=== PATIENT | female | born 1945 | race Caucasian/White ===

== ENCOUNTER 2017-03-28 07:29 | Outpatient (CLI) | payer MEDICARE, OTHER ==
[2017-03-28 08:01] LABS: BASOPHILS # (AUTO) 0.1 10^3/uL (0.0-0.1); BASOPHILS % (AUTO) 1.2 %; EOSINOPHILS # (AUTO) 0.2 10^3/uL (0.0-0.7); EOSINOPHILS % (AUTO) 2.1 %; HCT - HEMATOCRIT 39.2 % (37.0-47.0); HGB - HEMOGLOBIN 13.4 g/dL (12.0-16.0); LYMPHOCYTES # (AUTO) 2.2 10^3/uL (1.5-3.5); LYMPHOCYTES % (AUTO) 27.4 %; MEAN CORPUSCULAR HEMOGLOBIN 30.1 pg (27.0-31.0); MEAN CORPUSCULAR HGB CONC 34.3 g/dL (32.0-36.0); MEAN CORPUSCULAR VOLUME 87.8 fL (81.0-99.0); MEAN PLATELET VOLUME 7.7 fL (7.9-10.8); MONOCYTES # (AUTO) 0.7 10^3/uL (0.0-1.0); MONOCYTES % (AUTO) 8.8 %; NEUTROPHILS # (AUTO) 4.8 10^3/uL (1.5-6.6); NEUTROPHILS % (AUTO) 60.5 %; RED BLOOD COUNT 4.46 10^6/uL (4.20-5.40); RED CELL DISTRIBUTION WIDTH 13.4 % (12.0-15.0)
[2017-03-28 08:25] LABS: ALBUMIN/GLOBULIN RATIO 1.1 (1.0-2.2); BILIRUBIN,TOTAL 0.7 mg/dL (0.2-1.0); BUN - BLOOD UREA NITROGEN 16 mg/dL (6-20); CALCIUM 9.3 mg/dL (8.5-10.3); CARBON DIOXIDE - CO2 27 mmol/L (21-32); CHLORIDE 104 mmol/L (101-111); CHOL/HDL RATIO 2.8 (<4.4); CHOLESTEROL 165 mg/dL; CREATININE 0.6 mg/dL (0.4-1.0); GFR - MDRD 98 (>89); GLUCOSE 107 mg/dL (70-100); HDL CHOLESTEROL 60 mg/dL; LDL/HDL RATIO 1.5 (<4.4); POTASSIUM 4.1 mmol/L (3.5-5.0); SODIUM 139 mmol/L (135-145); TOTAL PROTEIN 7.4 g/dL (6.7-8.2); TRIGLYCERIDES 84 mg/dL; VLDL CHOLESTEROL 17 mg/dL
[2017-03-28 08:36] LABS: HEMOGLOBIN A1C 0.61 g/dL
[2017-03-28 09:26] LABS: THYROID STIMULATING HORMONE 1.73 uIU/mL (0.34-5.60)
[2017-03-29 04:53] LABS: TEST RESULT REPORT (())
[2017-04-02 20:22] LABS: TEST RESULT REPORT (())
== END 2017-03-28 07:30 | disposition home or self-care (01) ==
LOC: LAB 07:29
PROVIDERS: ATTEND Obstetrics & Gynecology Obesity Medicine
DX: E78.5 Hyperlipidemia, unspecified (principal); E11.9 Type 2 diabetes mellitus without complications; Z83.49 Family history of other endocrine, nutritional and metabolic diseases; Z82.49 Family history of ischemic heart disease and other diseases of the circulatory system; Z83.3 Family history of diabetes mellitus; E55.9 Vitamin D deficiency, unspecified
CPT/HCPCS: 80053; 80061; 81599; 82306; 82607; 83036; 83525; 83735; 84443; 85025; 86140

== ENCOUNTER 2017-05-11 11:56 | Outpatient (CLI) | payer MEDICARE, OTHER ==
--- NOTE | 2017-05-11 20:42 | XRAY Report ---
EXAM: CHEST RADIOGRAPHY EXAM DATE: 05/11/2017 01:23 PM. CLINICAL HISTORY: DYSPNEA. COMPARISON: 07/07/2016. TECHNIQUE: 2 views. FINDINGS: Lungs/Pleura: No focal infiltrate, effusion, or pneumothorax. Mild interstitial opacities peripherall y, which may reflect fibrosis. Mediastinum: Heart and mediastinal contours are unremarkable. Other: None. IMPRESSION: Possible mild pulmonary fibrosis. No focal infiltrate. [facility] Referring Provider Line: [phone] SITE ID: [id number]
== END 2017-05-11 11:57 | disposition home or self-care (01) ==
LOC: DI 11:56
PROVIDERS: ATTEND Internal Medicine
DX: R06.00 Dyspnea, unspecified (principal)
CPT/HCPCS: 71020

== ENCOUNTER 2018-03-11 09:35 | Outpatient (CLI) | payer MEDICARE, OTHER ==
[2018-03-11 10:11] LABS: CALCIUM 9.6 mg/dL (8.5-10.3); CREATININE 0.7 mg/dL (0.4-1.0)
[2018-03-11 10:23] LABS: HB2 TOTAL 14.1 g/dL; HEMOGLOBIN A1C 0.63 g/dL; HEMOGLOBIN A1C % 6.2 % (4.6-6.2)
== END 2018-03-11 09:36 | disposition home or self-care (01) ==
LOC: LAB 09:35
PROVIDERS: ATTEND Internal Medicine
DX: E11.9 Type 2 diabetes mellitus without complications (principal); Z79.899 Other long term (current) drug therapy
CPT/HCPCS: 36415; 80048; 82607; 83036

== ENCOUNTER 2018-03-18 18:50 | Emergency (ER) | payer MEDICARE, OTHER ==
[2018-03-18 19:45] LABS: BASOPHILS # (AUTO) 0.1 10^3/uL (0.0-0.1); BASOPHILS % (AUTO) 0.9 %; EOSINOPHILS # (AUTO) 0.2 10^3/uL (0.0-0.7); EOSINOPHILS % (AUTO) 1.8 %; LYMPHOCYTES # (AUTO) 3.2 10^3/uL (1.5-3.5); LYMPHOCYTES % (AUTO) 30.4 %; MEAN CORPUSCULAR HEMOGLOBIN 29.1 pg (27.0-31.0); MEAN CORPUSCULAR HGB CONC 33.1 g/dL (32.0-36.0); MEAN PLATELET VOLUME 7.1 fL (7.9-10.8); MONOCYTES # (AUTO) 0.9 10^3/uL (0.0-1.0); MONOCYTES % (AUTO) 8.4 %; NEUTROPHILS # (AUTO) 6.3 10^3/uL (1.5-6.6); NEUTROPHILS % (AUTO) 58.5 %; PLT - PLATELET COUNT 307 10^3/uL (130-450); RED BLOOD COUNT 4.47 10^6/uL (4.20-5.40); RED CELL DISTRIBUTION WIDTH 13.9 % (12.0-15.0); WHITE BLOOD COUNT 10.7 x10^3/uL (4.8-10.8)
[2018-03-18 20:01] LABS: ALBUMIN 4.3 g/dL (3.2-5.5); ALBUMIN/GLOBULIN RATIO 1.3 (1.0-2.2); BILIRUBIN,TOTAL 0.6 mg/dL (0.2-1.0); CALCIUM 9.5 mg/dL (8.5-10.3); CREATININE 0.8 mg/dL (0.4-1.0); TOTAL PROTEIN 7.7 g/dL (6.7-8.2)
[2018-03-18] MEDS ORDERED: CYCLOBENZAPRINE 10 MG TABLET PO STA (20:05)
[2018-03-18] MEDS ORDERED: LIDOCAINE PATCH 5% TOP STA (20:05)
[2018-03-18] MEDS ORDERED: KETOROLAC 60 MG/2 ML VIAL IVP STA (20:05)
--- NOTE | 2018-03-18 20:14 | ED Physician Documentation ---
PD HPI NECK PAIN - Stated complaint Stated Complaint: RT NEXT AND JAW PX - Chief complaint Chief Complaint: Cardiac - History obtained from History obtained from: Patient, Family - History of Present Illness Timing - onset: Yesterday Timing - details: Gradual onset, Still present Location: Upper, Lower, Right Quality: Pain, Aching Associated symptoms: No: Fever, Weakness, Numbness Worsened by: Movement, Lifting, Twisting Similar symptoms before: No diagnosis Recently seen: Not recently seen - Additional information Additional information: patient is a 73 year old female with a history of arthritis and possible tmj who is presenting to the emergency department for neck and jaw pain. patient states that the pain started yesterday and has become progressively worse. patient states that she had recently been driving a lot which is new for her, she also reports that she had a history jaw pain but has never been diagnosed with jaw pain. Review of Systems Constitutional: denies: Fever, Chills Eyes: reports: Decreased vision. denies: Photophobia Ears: reports: Ear pain Throat: denies: Sore throat Cardiac: denies: Chest pain / pressure, Palpitations GI: denies: Nausea, Vomiting : reports: Reviewed and negative Skin: denies: Rash, Lesions Musculoskeletal: reports: Neck pain, Extremity pain Neurologic: denies: Generalized weakness, Focal weakness, Numbness Immunocompromised: denies: Immunocompromised PD PAST MEDICAL HISTORY - Past Medical History Cardiovascular: Hypertension, High cholesterol Respiratory: None Endocrine/Autoimmune: None, Type 2 diabetes, HyPOthyroidism GI: None : None HEENT: None Psych: None Musculoskeletal: Osteoarthritis Derm: None - 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 - Present Medications Home Medications: Ambulatory Orders Medication Instructions Recorded Confirmed Atorvastatin Calcium 10 mg PO QPM 06/11/16 07/07/16 Levothyroxine Sodium 75 mcg PO DAILY 06/11/16 07/07/16 Lisinopril 40 mg PO BID 06/11/16 07/07/16 Metformin HCl [Glucophage] 850 mg PO BIDWM 06/11/16 07/07/16 Aspirin Chewable [[place] 81 mg PO DAILY #30 tablet 07/08/16 Aspirin] amLODIPine [Norvasc] 5 mg PO DAILY #30 tablet 07/08/16 Cyclobenzaprine [Flexeril] 10 mg PO TID PRN #10 tablet 03/18/18 Lidocaine Patch 5% [Lidoderm Patch] 1 each TOP DAILY #14 patch 03/18/18 Omeprazole [PriLOSEC] 10 mg PO 03/18/18 - Allergies Allergies/Adverse Reactions: Allergies Allergy/AdvReac Type Severity Reaction Status Date / Time No Known Drug Allergies Allergy Verified 03/18/18 19:02 - Social History Does the pt smoke?: No Smoking Status: Never smoker Does the pt drink ETOH?: No - Immunizations Immunizations are current?: Yes PD ED PE NORMAL - Vitals Vital signs reviewed: Yes - General General: Alert and oriented X 3, No acute distress - HEENT HEENT: Atraumatic, PERRL - Neck Neck: No adenopathy - Cardiac Cardiac: RRR, No murmur - Respiratory Respiratory: No respiratory distress - Abdomen Abdomen: Soft, Non tender, Non distended - Derm Derm: Normal color, No rash - Extremities Extremities: No deformity - Neuro Neuro: Alert and oriented X 3, 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 No: Stiff neck Results - Vitals Vitals: Vital Signs - 24 hr 03/18/18 03/18/18 03/18/18 19:00 20:11 20:38 Temperature 36.4 C L Heart Rate 84 76 72 Respiratory 18 17 17 Rate Blood Pressure 152/91 H 120/54 L 124/76 O2 Saturation 98 98 99 Oxygen O2 Source Room air - EKG (time done) 1908 Rate: Rate (enter#) (78) Rhythm: NSR [place]: Normal Intervals: Normal NH Compare to prior EKG: Unchanged from prior EKG Computer interpretation: Disagree with computer - Labs Labs: Laboratory Tests 03/18/18 03/18/18 03/18/18 19:37 19:37 19:37 WBC 10.7 RBC 4.47 Hgb 13.0 Hct 39.4 MCV 88.0 MCH 29.1 MCHC 33.1 RDW 13.9 Plt Count 307 MPV 7.1 L Neut # 6.3 Lymph # 3.2 Dane # 0.9 Eos # 0.2 Baso # 0.1 Absolute Nucleated RBC 0.00 Nucleated RBC % 0.0 Sodium 131 L Potassium 3.9 Chloride 96 L Carbon Dioxide 26 Anion Gap 9.0 BUN 21 H Creatinine 0.8 Estimated GFR (MDRD) 70 L Glucose 102 H Calcium 9.5 Total Bilirubin 0.6 AST 27 ALT 27 Alkaline Phosphatase 68 Troponin I < 0.04 Total Protein 7.7 Albumin 4.3 Globulin 3.4 Albumin/Globulin Ratio 1.3 Lipase 29 PD MEDICAL DECISION MAKING - ED course Complexity details: reviewed old records, reviewed results, re-evaluated patient , considered differential, d/w patient, d/w family ED course: patient was seen and examined at bedside. patient was well appearing and in no acute distress. ekg was performed an was within normal limits. patient's diagnostics were within normal limits. patient's pain was likely musculoskeletal in nature. patient was treated with toradol, flexeril and a lidoderm patch. Patient required no further work up and was stable for discharge with outpatient follow up. Departure - Departure Disposition: Home, Self Care Clinical Impression: Neck muscle strain Condition: Good Instructions: ED Spasm Neck No Injury Follow-Up: Sheila Egan MD [Primary Care Provider] - Within 3 Days Prescriptions: Cyclobenzaprine [Flexeril] 10 mg PO TID PRN #10 tablet PRN Reason: Spasms Lidocaine Patch 5% [Lidoderm Patch] 1 each TOP DAILY #14 patch Comments: Your diagnostics today were within normal limits. there were no acute abnormalities. Your symptoms are less likely cardiac in nature and more likely musculoskeletal. That being said it is important that you follow up with your doctor in the next three days. You are at an appropriate time for a stress test and repeat echo. You may return to the emergency department at any time for new, worsening or uncontrollable symptoms.
[2018-03-18 20:39] VITALS: BP 124/76
== END 2018-03-18 20:45 | disposition home or self-care (01) ==
LOC: ED 18:50
DX: S16.1XXA Strain of muscle, fascia and tendon at neck level, initial encounter (principal); X58.XXXA Exposure to other specified factors, initial encounter; I10 Essential (primary) hypertension; E78.00 Pure hypercholesterolemia, unspecified; E11.9 Type 2 diabetes mellitus without complications; Z79.84 Long term (current) use of oral hypoglycemic drugs; E03.9 Hypothyroidism, unspecified; M19.90 Unspecified osteoarthritis, unspecified site; Z79.82 Long term (current) use of aspirin
CPT/HCPCS: 36415; 80053; 83690; 84484; 85025; 93005; 96374; 99283; 99284; A9270

== ENCOUNTER 2018-11-10 10:22 | Outpatient (CLI) | payer MEDICARE, OTHER ==
[2018-11-10] MEDS ORDERED: ALPRAZolam 0.25 MG TABLET PO SCH (12:00)
[2018-11-10] MEDS ORDERED: ALPRAZolam 0.25 MG TABLET PO ONE (12:12)
[2018-11-10] MEDS ORDERED: REGADENOSON 0.4 MG/5 ML SYRINGE IVP ONE (12:44)
--- NOTE | 2018-11-10 13:40 | CARDIAC PROCEDURE NOTE ---
DATE OF SERVICE: 11/10/2018 Physician: Sheila Egan MD PROCEDURE: Exercise Cardiolyte test. PROTOCOL: Renny. TIME: 5 minutes 3 seconds, NAKIA was -10, METs 7.05. BLOOD PRESSURE RESPONSE: Baseline 146/82 to maximum 190/80 during recovery. HEART RATE RESPONSE: Baseline 75 to maximum 130, which was 88% of the maximum predicted. SYMPTOMS: No chest pain. No dizziness. No jaw pain. REASON FOR STOPPING TEST: The patient felt winded. EXAM CHANGES: None. ARRHYTHMIAS: None detected. ST-SEGMENT RESPONSE: No significant ST-segment elevations or depressions. IMPRESSION: No symptoms, no significant electrocardiogram changes. CONCLUSION: Await Cardiolite portion of test. TD: 11/10/2018 13:25 MTDBang
--- NOTE | 2018-11-10 15:33 | Nuclear Medicine Report ---
Reason: CHEST PAIN, PRUETT Procedure Date: 11/10/2018 Accession Number: [id number] / [id number] Procedure: NM - Myocardial Perfusion STR/RST CPT Code: FULL RESULT: EXAM: SINGLE-ISOTOPE PHARMACOLOGICAL STRESS TEST WITH REGADENOSON. SINGLE-ISOTOPE AND ONE-DAY REST/STRESS MYOCARDIAL PERFUSION SCANS WITH TOMOGRAPHIC IMAGING, QUANTITATIVE ANALYSIS, WALL MOTION ANALYSIS AND CALCULATION OF EJECTION FRACTION. EXAM DATE: 11/10/2018 02:30 PM. CLINICAL HISTORY: Chest pain, dyspnea on exertion. COMPARISON: None. TECHNIQUE: After the intravenous administration of 10.8 mCi of Tc-99m sestamibi, a rest myocardial perfusion scan was done with tomography. Motion correction was applied when appropriate. After an appropriate delay, pharmacological stress was performed with the infusion of 0.4 mg regadenoson per protocol. According to protocol, 43 mCi of Tc-99m sestamibi was injected for stress myocardial perfusion scan. Motion correction was applied when appropriate. Gated tomographic images were obtained for wall motion analysis and computation of left ventricular ejection fraction. FINDINGS: No fixed or reversible perfusion defects. Wall motion analysis demonstrates normal wall motion. Left ventricular chamber size is normal. Ejection fraction is 89%. IMPRESSION: 1. No scintigraphic findings to indicate myocardial ischemia. Negative for infarct. 2. Left ventricular ejection fraction of 89%. 3. Normal segmental and global wall motion. 4. Normal left ventricular cavity size, no change with stress. [facility]
== END 2018-11-10 10:23 | disposition home or self-care (01) ==
LOC: DI 10:22
PROVIDERS: ATTEND Internal Medicine
DX: R07.9 Chest pain, unspecified (principal); R06.00 Dyspnea, unspecified
CPT/HCPCS: 78452; 93017; A9270; A9500

== ENCOUNTER 2019-01-25 08:26 | Outpatient (CLI) | payer MEDICARE, OTHER ==
[2019-01-26 13:39] LABS: BUN - BLOOD UREA NITROGEN 19 mg/dL (6-20); CALCIUM 9.3 mg/dL (8.5-10.3); CARBON DIOXIDE - CO2 28 mmol/L (21-32); CHLORIDE 101 mmol/L (101-111); CREATININE 0.6 mg/dL (0.4-1.0); GFR - MDRD 98 (>89); GLUCOSE 124 mg/dL (70-100); SODIUM 137 mmol/L (135-145)
[2019-01-26 13:40] LABS: ALBUMIN 3.9 g/dL (3.2-5.5); ALBUMIN/GLOBULIN RATIO 1.1 (1.0-2.2); ALKALINE PHOSPHATASE 66 IU/L (42-121); ALT ALANINE AMINOTRANSFERASE 22 IU/L (10-60); AST ASPARTATE AMINOTRANSFERASE 25 IU/L (10-42); BILIRUBIN,TOTAL 0.6 mg/dL (0.2-1.0); CHOL/HDL RATIO 2.8 (<4.4); CHOLESTEROL 188 mg/dL; HDL CHOLESTEROL 67 mg/dL; LDL CHOLESTEROL,CALCULATED 101 mg/dL; LDL/HDL RATIO 1.5 (<4.4); TOTAL PROTEIN 7.3 g/dL (6.7-8.2); VLDL CHOLESTEROL 20 mg/dL
== END 2019-01-25 08:27 | disposition home or self-care (01) ==
LOC: LAB 08:26
PROVIDERS: ATTEND Nurse Practitioner Adult Health
DX: E66.9 Obesity, unspecified (principal)
CPT/HCPCS: 36415; 80053; 80061; 83036; 83721; 84439; 84443

== ENCOUNTER 2019-06-25 06:09 | Day surgery (SDC) | payer MEDICARE, OTHER ==
[2019-06-25] MEDS ORDERED: KETOROLAC 0.45% OPHTH DROPS ONE (06:28)
[2019-06-25] MEDS ORDERED: PHENYLEPHRINE 2.5% OPHTH 2 ML DROPS ONE (06:28)
[2019-06-25] MEDS ORDERED: CYCLOPENTOLATE 1% OPHTH DROPS 2 ML ONE (06:29)
[2019-06-25] MEDS ORDERED: PROPARACAINE 0.5% OPHTH DROPS 15 ML ONE (06:29)
[2019-06-25] MEDS ORDERED: LACTATED RINGERS 500 ML IV ONE (06:31)
[2019-06-25] MEDS ORDERED: PROPARACAINE 0.5% OPHTH DROPS 15 ML RIGHTEYE ONE ×2 (06:40→07:36)
[2019-06-25] MEDS ORDERED: KETOROLAC 0.45% OPHTH DROPS RIGHTEYE ONE (06:40)
[2019-06-25] MEDS ORDERED: PHENYLEPHRINE 2.5% OPHTH 2 ML DROPS RIGHTEYE ONE (06:40)
[2019-06-25] MEDS ORDERED: CYCLOPENTOLATE 1% OPHTH DROPS 2 ML RIGHTEYE ONE (06:40)
[2019-06-25] MEDS ORDERED: EPINEPHrine 1 MG/ML AMP ONE (07:19)
[2019-06-25] MEDS ORDERED: TRIAMCIN/MOXIFLOX OPHTHALMIC 0.6 ML VIAL IO ONE ×2 (07:19→07:37)
--- NOTE | 2019-06-25 07:19 | ANESTHESIA ---
Pre-Anesthesia VS, & Labs - Diagnosis senile cataract - Procedure right cataract extraction with IOL Vital Signs: Temp Pulse Resp BP Pulse Ox 36.3 C L 73 18 131/75 H 4 L 06/25/19 06:32 06/25/19 06:32 06/25/19 06:32 06/25/19 06:32 06/25/19 06:32 Height 5 ft 7 in Weight (kg) 93 kg Body Mass Index 37.7 - NPO >8 hours - Is Patient ?: No - Lab Results Current Lab Results: Laboratory Tests 06/25/19 06:46: POC Whole Bld Glucose 98 Home Medications and Allergies Home Medications: Ambulatory Orders Meloxicam 7.5 mg PO DAILY 06/24/19 Atorvastatin Calcium 10 mg PO QPM 06/11/16 Levothyroxine Sodium 75 mcg PO DAILY 06/11/16 Lisinopril 40 mg PO BID 06/11/16 Metformin HCl [Glucophage] 850 mg PO BIDWM 06/11/16 Omeprazole [PriLOSEC] 10 mg PO DAILY 03/18/18 Meloxicam 7.5 mg PO DAILY 06/24/19 Allergies/Adverse Reactions: Allergies Allergy/AdvReac Type Severity Reaction Status Date / Time No Known Drug Allergies Allergy Verified 03/18/18 19:02 Anes History & Medical History - Anesthetic History Anesthesia Complications: reports: No previous complications - Medical History Cardiovascular: reports: Hypertension, High cholesterol Pulmonary: reports: None Gastrointestinal: reports: None Urinary: reports: None Musculoskeletal: reports: Osteoarthritis Endocrine/Autoimmune: reports: Type 2 diabetes, HyPOthyroidism Blood Disorders: reports: None Skin: reports: None Smoking Status: Never smoker - Surgical History Eyes Ears Nose Throat (EENT): Tonsil/Adenoidectomy Gynecologic: Oophrectomy Exam General: Alert Dental: WNL Mouth Opening: Greater than 4 Fingerbreadths Neck Mobility: Normal Mallampati classification: II Respiratory: Lungs clear Cardiovascular: Regular rate, Normal S1, Normal S2 Plan Anesthesia Type: MAC Consent for Procedure(s) Verified and Reviewed: Yes Code Status: Attempt Resuscitation ASA classification: 2-Mild systemic disease Is this case an emergency?: No
[2019-06-25] MEDS ORDERED: TIMOLOL 0.5% OPHTH DROPS ONE (07:20)
[2019-06-25] MEDS ORDERED: BRIMONIDINE 0.2% OPHTH DROPS 5 ML ONE (07:20)
[2019-06-25] MEDS ORDERED: VANCOMYCIN OPHTHALMI 8MG/0.8ML 8 MG/0.8 ML SYRINGE IO ONE ×2 (07:20→07:37)
[2019-06-25] MEDS ORDERED: BSS/LIDOCAINE/EPINEPHRINE 1 ML SYRINGE ONE (07:20)
[2019-06-25] MEDS ORDERED: MIDAZOLAM 2 MG/2 ML VIAL IVP ONE (07:30)
[2019-06-25] MEDS ORDERED: EPINEPHrine 1 MG/ML AMP IVP ONE (07:35)
[2019-06-25] MEDS ORDERED: BRIMONIDINE 0.2% OPHTH DROPS 5 ML OPTH ONE (07:35)
[2019-06-25] MEDS ORDERED: BSS/LIDOCAINE/EPINEPHRINE 1 ML SYRINGE IO ONE (07:36)
[2019-06-25] MEDS ORDERED: TIMOLOL 0.5% OPHTH DROPS OPTH ONE (07:36)
[2019-06-25] MEDS ORDERED: CHONDR SULF/HYALURONATE SYRINGE IO ONE (07:36)
[2019-06-25 08:04] VITALS: BP 98/62
--- NOTE | 2019-06-25 08:24 | OPERATIVE REPORT ---
DATE OF SERVICE: 06/25/2019 Physician: Abner Hernandez MD PREOPERATIVE DIAGNOSIS: Visually significant cataract, right eye. This was her first cataract surgery. POSTOPERATIVE DIAGNOSIS: Visually significant cataract, right eye. DESCRIPTION OF PROCEDURE: Phacoemulsification with posterior chamber intraocular lens implant, right eye. SURGEON: Abner Hernandez MD. ANESTHESIA: Monitored anesthesia care. COMPLICATIONS: None. OPERATIVE INDICATIONS: This is a 74-year-old woman with progressive vision loss in the right eye due to 3-4+ nuclear sclerotic cataract. Best corrected visual acuity was 20/25 with glare to hand motion in the right eye. Indications for surgery were overall decrease in vision, difficulty reading, difficulty seeing street signs, and difficulty driving at night because of headlights from other vehicles. She was consented at length concerning risks and benefits of cataract surgery, after which she expressed a desire to proceed with surgery. OPERATIVE PROCEDURE: The patient was taken into OR #3 and placed under monitored anesthesia care. Surgical timeout was conducted confirming correct patient, correct procedure, and correct surgical site. She was given topical anesthesia, and then prepped and draped in the usual sterile fashion. The eye was entered at the 12 and 9-o'clock positions. Intracameral Shugarcaine was injected into the anterior chamber, followed by Viscoat. A continuous-tear curvilinear capsulorrhexis flap was created and removed from the anterior chamber. The nucleus was hydrodissected and phacoemulsified. The cortex was evacuated using automated infusion and aspiration. Provisc was injected in the capsular bag, and a 21.5 diopter intraocular lens inserted in the bag. Approximately 0.8 mL of a mixture of triamcinolone, moxifloxacin and vancomycin was injected subconjunctivally in the superior quadrant for infection and inflammation prophylaxis. I and A was used to evacuate the viscoelastic materials. The eye was inflated to physiologic pressure using a balanced salt solution and found to be watertight. The patient was taken from the operating room in good condition and given postoperative instructions. TD: 06/25/2019 08:01 VICTOR M
== END 2019-06-25 06:10 | disposition home or self-care (01) ==
LOC: SDS 06:09
PROVIDERS: ATTEND Ophthalmology
PROC: 08RJ3JZ Replacement of Right Lens with Synthetic Substitute, Percutaneous Approach (ICD-10-PCS; principal; 2019-06-25 07:30)
DX: H25.11 Age-related nuclear cataract, right eye (principal); E11.36 Type 2 diabetes mellitus with diabetic cataract; I10 Essential (primary) hypertension; E78.00 Pure hypercholesterolemia, unspecified; E03.9 Hypothyroidism, unspecified; Z79.84 Long term (current) use of oral hypoglycemic drugs; Z87.891 Personal history of nicotine dependence
CPT/HCPCS: 66984; A9270; J3490; V2632

== ENCOUNTER 2019-07-23 09:08 | Day surgery (SDC) | payer MEDICARE, OTHER ==
[~2019-07-23 09:08] MED LIST: BRIMONIDINE 0.2% OPHTH DROPS 5 ML ONE; BSS/LIDOCAINE/EPINEPHRINE 1 ML SYRINGE ONE; CYCLOPENTOLATE 1% OPHTH DROPS 2 ML ONE; EPINEPHrine 1 MG/ML AMP ONE; KETOROLAC 0.45% OPHTH DROPS ONE; PHENYLEPHRINE 2.5% OPHTH 2 ML DROPS ONE; PROPARACAINE 0.5% OPHTH DROPS 15 ML ONE; TIMOLOL 0.5% OPHTH DROPS ONE; TRIAMCIN/MOXIFLOX OPHTHALMIC 0.6 ML VIAL IO ONE; VANCOMYCIN OPHTHALMI 8MG/0.8ML 8 MG/0.8 ML SYRINGE IO ONE
[2019-07-23] MEDS ORDERED: MIDAZOLAM 2 MG/2 ML VIAL IVP ONE (09:09)
[2019-07-23] MEDS ORDERED: LACTATED RINGERS 500 ML IV ONE (09:54)
[2019-07-23] MEDS ORDERED: PHENYLEPHRINE 2.5% OPHTH 2 ML DROPS LEFTEYE ONE (10:00)
[2019-07-23] MEDS ORDERED: CYCLOPENTOLATE 1% OPHTH DROPS 2 ML LEFTEYE ONE (10:00)
[2019-07-23] MEDS ORDERED: PROPARACAINE 0.5% OPHTH DROPS 15 ML LEFTEYE ONE (10:00)
[2019-07-23] MEDS ORDERED: KETOROLAC 0.45% OPHTH DROPS LEFTEYE ONE (10:00)
--- NOTE | 2019-07-23 10:11 | ANESTHESIA ---
Pre-Anesthesia VS, & Labs - Diagnosis Left cataract - Procedure Left IOL and phaco Height 5 ft 7 in Body Mass Index 37.7 - NPO >8 hours - Is Patient ?: Not Applicable - Lab Results Lab results reviewed: No Home Medications and Allergies Atorvastatin Calcium 10 mg PO QPM 06/11/16 Levothyroxine Sodium 75 mcg PO DAILY 06/11/16 Lisinopril 40 mg PO BID 06/11/16 Metformin HCl [Glucophage] 850 mg PO BIDWM 06/11/16 Omeprazole [PriLOSEC] 10 mg PO DAILY 03/18/18 Meloxicam 7.5 mg PO DAILY 06/24/19 Allergies/Adverse Reactions: Allergies Allergy/AdvReac Type Severity Reaction Status Date / Time No Known Drug Allergies Allergy Verified 07/23/19 09:55 Anes History & Medical History - Anesthetic History Anesthesia Complications: reports: No previous complications Family history of Anesthesia Complications: Denies Family history of Malignant Hyperthermia: Denies - Medical History Cardiovascular: reports: Hypertension, High cholesterol Pulmonary: reports: None Gastrointestinal: reports: None Urinary: reports: None Neuro: reports: None Musculoskeletal: reports: Osteoarthritis Endocrine/Autoimmune: reports: Type 2 diabetes, HyPOthyroidism Blood Disorders: reports: None Skin: reports: None Smoking Status: Never smoker Psychosocial: reports: No issues indicated - Surgical History Eyes Ears Nose Throat (EENT): Tonsil/Adenoidectomy Gynecologic: Oophrectomy Exam General: Alert Dental: WNL Mouth Opening: Greater than 4 Fingerbreadths Neck Mobility: Normal Mallampati classification: II Thyromental Distance: greater than 6 cm Respiratory: Lungs clear Cardiovascular: Regular rate Mental/Cognitive Status: Alert/Oriented X3 Cognitive Status: Within normal limits Plan Anesthesia Type: MAC Consent for Procedure(s) Verified and Reviewed: Yes Code Status: Attempt Resuscitation ASA classification: 2-Mild systemic disease Is this case an emergency?: No
[2019-07-23] MEDS ORDERED: BRIMONIDINE 0.2% OPHTH DROPS 5 ML OPTH ONE (11:11)
[2019-07-23] MEDS ORDERED: CHONDR SULF/HYALURONATE SYRINGE IO ONE (11:11)
[2019-07-23] MEDS ORDERED: EPINEPHrine 1 MG/ML AMP IVP ONE (11:11)
[2019-07-23] MEDS ORDERED: TIMOLOL 0.5% OPHTH DROPS OPTH ONE (11:11)
[2019-07-23] MEDS ORDERED: VANCOMYCIN OPHTHALMI 8MG/0.8ML 8 MG/0.8 ML SYRINGE IO ONE (11:12)
[2019-07-23] MEDS ORDERED: BSS/LIDOCAINE/EPINEPHRINE 1 ML SYRINGE IO ONE (11:12)
[2019-07-23] MEDS ORDERED: TRIAMCIN/MOXIFLOX OPHTHALMIC 0.6 ML VIAL IO ONE (11:14)
[2019-07-23 11:38] VITALS: BP 123/59
--- NOTE | 2019-07-23 18:12 | OPERATIVE REPORT ---
DATE OF SERVICE: 07/23/2019 Physician: Abner Hernandez MD PREOPERATIVE DIAGNOSIS: Visually significant cataract, left eye. Cataract surgery was performed on the right eye on 06/25/2019. POSTOPERATIVE DIAGNOSIS: Visually significant cataract, left eye. Cataract surgery was performed on the right eye on 06/25/2019. PROCEDURE: Phacoemulsification with posterior chamber intraocular lens implant, left eye. SURGEON: Abner Hernandez MD ANESTHESIA: Monitored anesthesia care. COMPLICATIONS: None. OPERATIVE INDICATIONS: This is a 74-year-old woman with progressive vision loss in the left eye due to 3-4+ nuclear sclerotic and vacuolar cataract. Best corrected visual acuity was 20/25, with glare to hand motion vision in the left eye. She was consented at length concerning risks and benefits of cataract surgery, after which she expressed a desire to proceed with surgery. OPERATIVE PROCEDURE: The patient was taken to OR #3 and placed under monitored anesthesia care. A surgical timeout was conducted confirming correct patient, correct procedure, and correct surgical site. She was given topical anesthesia, and prepped and draped in the usual sterile fashion. The eye was entered at the 6 and 3 o'clock positions. Intracameral Shugarcaine was injected into the anterior chamber followed by Viscoat. A continuous-tear curvilinear capsulorrhexis was performed. The nucleus was hydrodissected and phacoemulsified. The cortex was evacuated using automated infusion and aspiration (I&A). Provisc was injected in the capsular bag and a 22.0 diopter intraocular lens inserted in the bag. Approximately 0.8 mL of a mixture of triamcinolone, moxifloxacin, and vancomycin was injected subconjunctivally in the superior quadrant for infection and inflammation prophylaxis. I&A was used to evacuate the viscoelastic materials. The eye was inflated to physiologic pressure using balanced salt solution and found to be watertight. The patient was taken from the operating room in good condition and given postoperative instructions. TD: 07/23/2019 11:32 MTDBang
== END 2019-07-23 09:09 | disposition home or self-care (01) ==
LOC: SDS 09:08
PROVIDERS: ATTEND Ophthalmology
PROC: 08RJ3JZ Replacement of Right Lens with Synthetic Substitute, Percutaneous Approach (ICD-10-PCS; principal; 2019-07-23 09:30)
DX: E11.36 Type 2 diabetes mellitus with diabetic cataract (principal); I10 Essential (primary) hypertension; E78.00 Pure hypercholesterolemia, unspecified; E03.9 Hypothyroidism, unspecified; M19.90 Unspecified osteoarthritis, unspecified site
CPT/HCPCS: 66984; A9270; J3490; V2632

== ENCOUNTER 2020-05-31 14:09 | Outpatient (CLI) | payer MEDICARE, OTHER | END 2020-05-31 14:10 | disposition home or self-care (01) | LOC: COV 14:09 | PROVIDERS: ATTEND Family Medicine | DX: R05 Cough (principal); M79.10 Myalgia, unspecified site; R53.83 Other fatigue; R68.83 Chills (without fever); J02.9 Acute pharyngitis, unspecified; R09.81 Nasal congestion; Z20.828 Contact with and (suspected) exposure to other viral communicable diseases ==

== ENCOUNTER 2020-11-03 11:10 | Outpatient (CLI) | payer MEDICARE, OTHER ==
[2020-11-03] MEDS ORDERED: IOVERSOL 320 50 ML VIAL ONE (11:27)
[2020-11-03] MEDS ORDERED: IOVERSOL 320 100 ML VIAL IVP ONE ×2 (11:27→13:26)
[2020-11-03 11:38] LABS: CREATININE 0.7 mg/dL (0.4-1.0)
--- NOTE | 2020-11-03 13:05 | CT Report ---
PROCEDURE: Abdomen/Pelvis W INDICATIONS: LUQ PAIN CONTRAST: IV CONTRAST: Optiray 320 ml: 100 PO CONTRAST: Optiray 320 ml50 TECHNIQUE: After the administration of 100 mL contrast, 5 mm thick sections acquired from the diaphragms to the symphysis. 5 mm thick coronal and sagittal reformats were acquired. For radiation dose reduction, t he following was used: automated exposure control, adjustment of mA and/or kV according to patient s ize. COMPARISON: None. FINDINGS: Image quality: Excellent. ABDOMEN: Lung bases: Lung bases have no focal consolidation or mass. There is septal thickening which appears chronic. Cardiac chambers have a normal size. The coronary arteries have atherosclerotic calcificatio ns. Solid organs: Liver and spleen are normal in size and enhancement. Large bowel is interposed betwee n the liver and right diaphragm. Gallbladder is normal Biliary system is non dilated. Pancreas enha nces normally. No adrenal nodules. Both kidneys have a normal size. No hydronephrosis or obstructive calculi. There is a 1.5 cm simple cyst of the left kidney. Peritoneum and bowel: Bowel loops demonstrate normal wall thickness and caliber. There is increased retained stool throughout the colon. No free fluid or air. Nodes and vessels: No retroperitoneal or mesenteric adenopathy by size criteria. Aorta and inferior vena cava are normal in size. Miscellaneous: No ventral hernias. PELVIS: Genitourinary: Bladder wall thickness is normal. A pessary is noted. Miscellaneous: No inguinal hernias or adenopathy. Bones: Multilevel degenerative changes and disc disease. IMPRESSION: 1. No acute abdominal or pelvic abnormality. 2. Constipation. Reviewed by: Edgar Montez on 11/03/2020 1:03 PM PST Approved by: Edgar Montez on 11/03/2020 1:03 PM PST Station ID: [id number]
[2020-11-03] MEDS ORDERED: IOVERSOL 320 50 ML VIAL PO ONE (13:26)
== END 2020-11-03 11:11 | disposition home or self-care (01) ==
LOC: DI 11:10
PROVIDERS: ATTEND Internal Medicine
DX: R10.12 Left upper quadrant pain (principal); K59.00 Constipation, unspecified
CPT/HCPCS: 36415; 74177; 82565; Q9967

== ENCOUNTER 2020-12-21 13:05 | Outpatient (CLI) | payer MEDICARE, OTHER ==
--- NOTE | 2021-01-04 09:23 | Mammography Report ---
BILATERAL DIGITAL SCREENING MAMMOGRAM: 12/21/2020 CLINICAL: Routine screening. Comparison is made to exams dated: 03/13/2016 mammogram - [facility], 12/20/2009 [facility] mogram, 12/20/2009 ultrasound, and 11/24/2009 mammogram - [facility]. The tissue of b oth breasts is predominantly fatty. No significant masses, calcifications, or other findings are seen in either breast. There has been no significant interval change. IMPRESSION: NEGATIVE There is no mammographic evidence of malignancy. A 1 year screening mammogram is recommended. This exam was interpreted at Station ID: [id number]. NOTE: For mammograms, a report in lay terms will be sent to the patient. Approximately 15% of breast malignancies will not be visualized mammographically. In the management of a palpable breast mass, a negative mammogram must not discourage biopsy of a clinically suspicious lesion. Electronically Signed By: Fabio Diggs M.D. aty/penrad:01/04/2021 06:24:22 ACR BI-RADS Category 1: Negative 3341F PARENCHYMAL PATTERN: (F) - The breast(s) demonstrate(s) diffuse fatty replacement. BI-RADS CATEGORY: (1) - 1 RECOMMENDATION: (ANNUAL) - Recommend routine annual screening mammography. 20211222 1 year screening LATERALITY: (B)
== END 2020-12-21 13:06 | disposition home or self-care (01) ==
LOC: DI 13:05
PROVIDERS: ATTEND Internal Medicine
DX: Z12.31 Encounter for screening mammogram for malignant neoplasm of breast (principal)

== ENCOUNTER 2021-04-14 10:17 | Outpatient (CLI) | payer MEDICARE, OTHER ==
[2021-04-14 11:01] LABS: BASOPHILS # (AUTO) 0.1 10^3/uL (0.0-0.1); BASOPHILS % (AUTO) 1.1 %; EOSINOPHILS # (AUTO) 0.5 10^3/uL (0.0-0.7); EOSINOPHILS % (AUTO) 5.3 %; HCT - HEMATOCRIT 39.6 % (37.0-47.0); HGB - HEMOGLOBIN 12.8 g/dL (12.0-16.0); LYMPHOCYTES # (AUTO) 1.9 10^3/uL (1.5-3.5); LYMPHOCYTES % (AUTO) 21.9 %; MEAN CORPUSCULAR HEMOGLOBIN 28.5 pg (27.0-31.0); MEAN CORPUSCULAR HGB CONC 32.3 g/dL (32.0-36.0); MEAN CORPUSCULAR VOLUME 88.2 fL (81.0-99.0); MEAN PLATELET VOLUME 8.9 fL (7.9-10.8); MONOCYTES # (AUTO) 0.8 10^3/uL (0.0-1.0); MONOCYTES % (AUTO) 9.1 %; NEUTROPHILS # (AUTO) 5.3 10^3/uL (1.5-6.6); NEUTROPHILS % (AUTO) 62.4 %; PLT - PLATELET COUNT 305 10^3/uL (130-450); RED BLOOD COUNT 4.49 10^6/uL (4.20-5.40); RED CELL DISTRIBUTION WIDTH 13.7 % (12.0-15.0); WHITE BLOOD COUNT 8.5 x10^3/uL (4.8-10.8)
[2021-04-14 11:18] LABS: CALCIUM 9.3 mg/dL (8.5-10.3); CREATININE 0.7 mg/dL (0.4-1.0); POTASSIUM 4.2 mmol/L (3.5-5.0)
[2021-04-14 11:19] LABS: BILIRUBIN,URINE NEGATIVE (NEGATIVE); GLUCOSE, URINE (UA) NEGATIVE (NEGATIVE); KETONES,URINE (UA) NEGATIVE (NEGATIVE); LEUKOCYTE ESTERASE, URINE MODERATE (NEGATIVE); NITRITE,URINE NEGATIVE (NEGATIVE); OCCULT BLOOD,URINE TRACE-INTA (NEGATIVE); PROTEIN,URINE NEGATIVE (NEGATIVE); UROBILINOGEN,URINE 0.2 (NORMAL) E.U./dL (NORMAL)
[2021-04-14 11:28] LABS: CLARITY,URINE CLEAR (CLEAR)
[2021-04-14 11:31] LABS: BACTERIA,URINE Few /HPF (None Seen); RBC,URINE 0-5 /HPF (0-5); SQUAMOUS EPITHELIAL CELL,UR FEW Squamous (<= Few)
[2021-04-14 12:02] LABS: ESTIMATED AVERAGE GLUCOSE 137 mg/dL (70-100); HEMOGLOBIN A1c% 6.4 % (4.27-6.07)
== END 2021-04-14 10:18 | disposition home or self-care (01) ==
LOC: LAB 10:17
PROVIDERS: ATTEND Orthopaedic Surgery
DX: Z01.818 Encounter for other preprocedural examination (principal); R73.9 Hyperglycemia, unspecified; N39.0 Urinary tract infection, site not specified
CPT/HCPCS: 36415; 80048; 81001; 83036; 85025; 87086; 93005

== ENCOUNTER 2021-09-10 07:53 | Outpatient (CLI) | payer MEDICARE ==
--- NOTE | 2021-09-10 15:33 | Ultrasound Report ---
PROCEDURE: Abdomen Limited INDICATIONS: NAUSEA ABD PAIN TECHNIQUE: Real-time focused scanning was performed of the abdomen, with image documentation. COMPARISON: Correlation is made with CT 11/03/2020 FINDINGS: The liver demonstrates normal size. The liver demonstrates moderately increased echogeni city, which limits ultrasound sensitivity for detection of masses. No gallstones or sludge can be seen. The gallbladder wall does not appear thickened. An apparent gall bladder wall diverticulum can be seen at the fundus. There is no specific pericholecystic fluid. The sonographic Pulido's sign is negative. No biliary ductal dilatation is seen. The common bile duct measures 3 mm. The visualized pancreas is within normal limits. The visualized right kidney demonstrates an 8 mm cyst. An additional 6 mm exophytic focus is seen inf eriorly, which demonstrates low echogenicity. No hydronephrosis or shadowing stones can be seen invol ving the right kidney. This study is limited by body habitus. IMPRESSION: No imaging explanation is found for the patient's presenting symptoms. At the inferior pole of the right kidney, there is a 6 mm low echogenicity exophytic focus, which can not be defined as a simple cyst on these images. This lesion is not seen on the prior CT examination. Differential diagnosis includes artifact. When clinically appropriate, please consider follow-up ult rasound or renal mass protocol abdominal CT (without and with contrast) for further evaluation Reviewed by: Gildardo Morales MD on 09/10/2021 2:32 PM [place] Approved by: Gildardo Morales MD on 09/10/2021 2:32 PM [facility] Station ID: [id number]
== END 2021-09-10 07:54 | disposition home or self-care (01) ==
LOC: DI 07:53
PROVIDERS: ATTEND Internal Medicine
DX: R10.9 Unspecified abdominal pain (principal); R11.0 Nausea; R93.421 Abnormal radiologic findings on diagnostic imaging of right kidney

== ENCOUNTER 2021-10-13 18:50 | Outpatient (CLI) | payer MEDICARE ==
--- NOTE | 2021-10-16 11:11 | Ultrasound Report ---
PROCEDURE: Retroperitoneal INDICATIONS: RIGHT RENAL MASS ON ABDOMINAL US TECHNIQUE: Real-time scanning was performed of the kidneys and bladder, with image documentation. COMPARISON: Ultrasound abdomen 09/10/2021, CT abdomen pelvis 11/03/2020 FINDINGS: Indication limited due to patient's body habitus. Kidneys: Right kidney measures 10.5 cm long; left kidney measures 11.2 cm long. Right renal cortica l thickness is 1.4 cm; left renal cortical thickness is 1.7 cm. Renal cortical echotexture is normal . No hydronephrosis or definite nephrolithiasis. There are a few bilateral renal cysts. These includ e a small exophytic cyst along the inferior pole of the right kidney measuring approximately 0.7 x 0. 4 x 0.5 cm which is likely anechoic and simple, with evaluation limited due to its small size. An add itional small right interpolar cyst is also demonstrated measuring 0.6 x 0.6 x 1.0 cm and appears sim ple within the limitations of the study. An exophytic simple cyst in the superior pole of the left ki dney measures 2.0 x 2.0 x 1.4 cm. There is an exophytic interpolar cyst in the left kidney measuring up to 0.9 x 0.6 x 0.6 cm. Bladder: Pre-void bladder volume is 270 mL. Post-void residual is 9 mL. Pre-void images demonstrat e no intraluminal masses or stones. On pre-void images, bilateral ureteral jets are noted with color Doppler interrogation. IMPRESSION: 1. Bilateral renal cysts including 2 small probable simple cysts in the right kidney, with evaluation limited due to body habitus. Reviewed by: Margarito Hopper MD on 10/16/2021 11:09 AM [facility] Approved by: Margarito Hopper MD on 10/16/2021 11:09 AM PST Station ID: [id number]
== END 2021-10-13 18:51 | disposition home or self-care (01) ==
LOC: DI 18:50
PROVIDERS: ATTEND Internal Medicine
DX: N28.1 Cyst of kidney, acquired (principal)

== ENCOUNTER 2021-12-29 06:29 | Day surgery (SDC) | payer MEDICARE, OTHER ==
[2021-12-29] MEDS ORDERED: LACTATED RINGERS 1,000 ML IV ONE (06:37)
--- NOTE | 2021-12-29 07:03 | ANESTHESIA ---
Pre-Anesthesia VS, & Labs - Diagnosis longstanding GERD, Belching - Procedure EGD with biopsies Vital Signs: Temp Pulse Resp BP Pulse Ox 36.2 C L 77 16 122/78 95 12/29/21 06:35 12/29/21 06:35 12/29/21 06:35 12/29/21 06:35 12/29/21 06:35 Height: 5 ft 7 in Weight (kg): 97.6 kg Body Mass Index: 33.7 BMI Classification: Obese - NPO >8 hours - Is Patient ?: No - Lab Results Current Lab Results: Laboratory Tests 12/29/21 06:48: POC Whole Bld Glucose 107 H Lab results reviewed: Yes Home Medications and Allergies Atorvastatin Calcium 10 mg PO QPM 06/11/16 Levothyroxine Sodium 75 mcg PO DAILY 06/11/16 Metformin HCl [Glucophage] 850 mg PO BIDWM 06/11/16 lisinopriL [Lisinopril] 40 mg PO BID 06/11/16 Omeprazole [PriLOSEC] 10 mg PO DAILY 03/18/18 Meloxicam 7.5 mg PO DAILY 06/24/19 Allergies/Adverse Reactions: Allergies Allergy/AdvReac Type Severity Reaction Status Date / Time aloe Allergy Rash Verified 12/29/21 06:50 Anes History & Medical History - Anesthetic History Anesthesia Complications: reports: No previous complications Family history of Anesthesia Complications: Denies Family history of Malignant Hyperthermia: Denies - Medical History Cardiovascular: reports: Hypertension, High cholesterol Pulmonary: reports: None Gastrointestinal: reports: GERD Urinary: reports: None Neuro: reports: None Musculoskeletal: reports: Osteoarthritis Endocrine/Autoimmune: reports: Type 2 diabetes, HyPOthyroidism Blood Disorders: reports: None Skin: reports: None Smoking Status: Never smoker - Surgical History General: reports: Colonoscopy Eyes Ears Nose Throat (EENT): reports: Tonsil/Adenoidectomy Gynecologic: reports: Oophrectomy Exam General: Alert, Oriented x3, Cooperative, No acute distress Dental: WNL Mouth Openin Fingerbreadth Neck Mobility: Normal Mallampati classification: II Plan Anesthesia Type: General, Total IV Consent for Procedure(s) Verified and Reviewed: Yes Code Status: Attempt Resuscitation ASA classification: 2-Mild systemic disease Is this case an emergency?: No
[2021-12-29] MEDS ORDERED: PROPOFOL 200 MG/20 ML VIAL IVP ONE (07:15)
[2021-12-29] MEDS ORDERED: LIDOCAINE-PF 2% 10 ML AMP SUBQ ONE (07:15)
--- NOTE | 2021-12-29 07:22 | HISTORY & PHYSICAL EXAMINATION ---
Chief Complaint - Chief Complaint Chief Complaint: gerd type symptoms History of Present Illness - History Obtained From Records Reviewed: yes History obtained from: pt Exam Limitations: none - History of Present Illness HPI Comment/Other: longstanding gerd type symptoms. worse last month. 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 HEENT: reports: Tonsil/Adenoidectomy - POLST Patient has POLST: No Meds/Allgy - Home Medications Home Medications: Ambulatory Orders Medication Instructions Recorded Confirmed Atorvastatin Calcium 10 mg PO QPM 06/11/16 12/28/21 Levothyroxine Sodium 75 mcg PO DAILY 06/11/16 12/28/21 Metformin HCl [Glucophage] 850 mg PO BIDWM 06/11/16 12/28/21 lisinopriL [Lisinopril] 40 mg PO BID 06/11/16 12/28/21 amLODIPine [Norvasc] 5 mg PO DAILY #30 tablet 07/08/16 12/28/21 Omeprazole [PriLOSEC] 10 mg PO DAILY 03/18/18 12/28/21 Meloxicam 7.5 mg PO DAILY 06/24/19 12/28/21 - Allergies Allergies/Adverse Reactions: Allergies Allergy/AdvReac Type Severity Reaction Status Date / Time aloe Allergy Rash Verified 12/29/21 06:50 Review of Systems - Other Findings Other Findings: 10 pt ros as above otherwise unremarkable Exam - Vital Signs Reviewed Vital Signs: Yes Vital Signs: Vital Signs x48h Temp Pulse Resp BP Pulse Ox 12/29/21 06:35 36.2 C L 77 16 122/78 95 - Physical Exam General Appearance: positive: No acute distress, Alert Eyes Bilateral: positive: PERRL, EOMI ENT: positive: No signs of dehydration Neck: positive: No JVD Respiratory: positive: No respiratory distress, Breath sounds nml Cardiovascular: positive: Regular rate & rhythm Abdomen: positive: Non-tender, No distention Neurologic/Psychiatric: positive: Oriented x3 Conclusion/Plan - Problem List (1) GERD (gastroesophageal reflux disease) Conclusion/Plan: plan egd with biopsies parq held and consent obtained - Lab Results Lab results reviewed: Yes
[2021-12-29] MEDS ORDERED: LACTATED RINGERS 600 ML IV ONE (07:55)
--- NOTE | 2021-12-29 08:21 | HISTORY & PHYSICAL EXAMINATION ---
Chief Complaint - Chief Complaint Chief Complaint: nausea and belching History of Present Illness - History Obtained From Records Reviewed: yes History obtained from: pt Exam Limitations: none - History of Present Illness HPI Comment/Other: nausea and more belching. 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 HEENT: reports: Tonsil/Adenoidectomy - POLST Patient has POLST: No Meds/Allgy - Home Medications Home Medications: Ambulatory Orders Medication Instructions Recorded Confirmed Atorvastatin Calcium 10 mg PO QPM 06/11/16 12/28/21 Levothyroxine Sodium 75 mcg PO DAILY 06/11/16 12/28/21 Metformin HCl [Glucophage] 850 mg PO BIDWM 06/11/16 12/28/21 lisinopriL [Lisinopril] 40 mg PO BID 06/11/16 12/28/21 amLODIPine [Norvasc] 5 mg PO DAILY #30 tablet 07/08/16 12/28/21 Omeprazole [PriLOSEC] 10 mg PO DAILY 03/18/18 12/28/21 Meloxicam 7.5 mg PO DAILY 06/24/19 12/28/21 - Allergies Allergies/Adverse Reactions: Allergies Allergy/AdvReac Type Severity Reaction Status Date / Time aloe Allergy Rash Verified 12/29/21 06:50 Review of Systems - Other Findings Other Findings: 10 pt ros as above otherwise unremarkable Exam - Vital Signs Reviewed Vital Signs: Yes Vital Signs: Vital Signs x48h Temp Pulse Resp BP Pulse Ox 12/29/21 08:03 81 16 109/65 98 12/29/21 07:55 84 16 108/50 L 98 12/29/21 07:52 36.3 C L 83 16 113/55 L 100 12/29/21 06:35 36.2 C L 77 16 122/78 95 - Physical Exam General Appearance: positive: Alert Eyes Bilateral: positive: PERRL, EOMI ENT: positive: No signs of dehydration Neck: positive: No JVD Respiratory: positive: No respiratory distress, Breath sounds nml Cardiovascular: positive: Regular rate & rhythm Abdomen: positive: Non-tender, No distention Neurologic/Psychiatric: positive: Oriented x3 Conclusion/Plan - Problem List (1) GERD (gastroesophageal reflux disease) Conclusion/Plan: plan egd with biopsies parq held and consent obtained - Lab Results Lab results reviewed: Yes
[2021-12-29 08:22] VITALS: BP 121/71
--- NOTE | 2021-12-29 11:01 | ANESTHESIA POST OP EVALUATION ---
Anesthesia Post Eval - Post Anesthesia Eval Vitals: Last Vital Signs Temp 36.4 C L 12/29/21 08:21 Pulse 82 12/29/21 08:21 Resp 16 12/29/21 08:21 BP 121/71 12/29/21 08:21 Pulse Ox 98 12/29/21 08:21 CV Function Including HR & BP: Stable Pain Control: Satisfactory Nausea & Vomiting: Negative Mental Status: Baseline Respiratory Status: Airway Patent Hydration Status: Satisfactory Anesthesia Complications: None
== END 2021-12-29 06:30 | disposition home or self-care (01) ==
LOC: SDS 06:29
PROVIDERS: ATTEND Surgery
PROC: 0DB78ZX Excision of Stomach, Pylorus, Via Natural or Artificial Opening Endoscopic, Diagnostic (ICD-10-PCS; 2021-12-29)
PROC: 0DB28ZX Excision of Middle Esophagus, Via Natural or Artificial Opening Endoscopic, Diagnostic (ICD-10-PCS; 2021-12-29)
PROC: 0DB38ZX Excision of Lower Esophagus, Via Natural or Artificial Opening Endoscopic, Diagnostic (ICD-10-PCS; principal; 2021-12-29 07:30)
DX: K21.9 Gastro-esophageal reflux disease without esophagitis (principal); R14.2 Eructation; K29.50 Unspecified chronic gastritis without bleeding; E66.9 Obesity, unspecified; Z68.33 Body mass index [BMI] 33.0-33.9, adult; E11.9 Type 2 diabetes mellitus without complications; Z79.84 Long term (current) use of oral hypoglycemic drugs
CPT/HCPCS: 43239; J7120

== ENCOUNTER 2022-03-08 08:08 | Outpatient (CLI) | payer MEDICARE, OTHER ==
[2022-03-08 08:32] LABS: BASOPHILS # (AUTO) 0.1 10^3/uL (0.0-0.1); BASOPHILS % (AUTO) 0.9 %; EOSINOPHILS # (AUTO) 0.2 10^3/uL (0.0-0.7); EOSINOPHILS % (AUTO) 2.9 %; HCT - HEMATOCRIT 41.2 % (37.0-47.0); HGB - HEMOGLOBIN 13.4 g/dL (12.0-16.0); LYMPHOCYTES % (AUTO) 29.6 %; MEAN CORPUSCULAR HEMOGLOBIN 28.9 pg (27.0-31.0); MEAN CORPUSCULAR HGB CONC 32.5 g/dL (32.0-36.0); MEAN CORPUSCULAR VOLUME 88.8 fL (81.0-99.0); MEAN PLATELET VOLUME 9.2 fL (7.9-10.8); MONOCYTES # (AUTO) 0.6 10^3/uL (0.0-1.0); MONOCYTES % (AUTO) 9.3 %; NEUTROPHILS # (AUTO) 3.8 10^3/uL (1.5-6.6); PLT - PLATELET COUNT 309 10^3/uL (130-450); RED BLOOD COUNT 4.64 10^6/uL (4.20-5.40); RED CELL DISTRIBUTION WIDTH 13.1 % (12.0-15.0); WHITE BLOOD COUNT 6.7 x10^3/uL (4.8-10.8)
[2022-03-08 08:43] LABS: CREATININE,URINE 88.5 mg/dL; MICROALBUM/CREATININE RATIO,UR 44.1 ug/mg (<30.0); MICROALBUMIN,URINE 3.9 mg/dL (0-300.0)
[2022-03-08 08:53] LABS: ALBUMIN 4.1 g/dL (3.2-5.5); ALBUMIN/GLOBULIN RATIO 1.2 (1.0-2.2); ALKALINE PHOSPHATASE 63 IU/L (42-121); ALT ALANINE AMINOTRANSFERASE 19 IU/L (10-60); AST ASPARTATE AMINOTRANSFERASE 21 IU/L (10-42); BILIRUBIN,TOTAL 0.6 mg/dL (0.2-1.0); BUN - BLOOD UREA NITROGEN 23 mg/dL (6-20); CALCIUM 9.2 mg/dL (8.5-10.3); CARBON DIOXIDE - CO2 25 mmol/L (21-32); CHLORIDE 99 mmol/L (101-111); CHOL/HDL RATIO 2.8 (<4.4); CHOLESTEROL 195 mg/dL; CK- CREATINE KINASE 149 IU/L (22-269); CREATININE 0.7 mg/dL (0.4-1.0); GFR - MDRD 81 (>89); GLUCOSE 109 mg/dL (70-100); HDL CHOLESTEROL 70 mg/dL; LDL CHOLESTEROL,CALCULATED 113 mg/dL; LDL/HDL RATIO 1.6 (<4.4); POTASSIUM 4.2 mmol/L (3.5-5.0); SODIUM 134 mmol/L (135-145); TOTAL PROTEIN 7.6 g/dL (6.7-8.2); TRIGLYCERIDES 62 mg/dL; VLDL CHOLESTEROL 12 mg/dL
[2022-03-08 09:04] LABS: THYROID STIMULATING HORMONE 1.96 uIU/mL (0.34-5.60)
[2022-03-08 12:49] LABS: ESTIMATED AVERAGE GLUCOSE 126 mg/dL (70-100)
== END 2022-03-08 08:09 | disposition home or self-care (01) ==
LOC: LAB 08:08
PROVIDERS: ATTEND Internal Medicine
DX: E11.9 Type 2 diabetes mellitus without complications (principal); I10 Essential (primary) hypertension; E03.9 Hypothyroidism, unspecified; E78.5 Hyperlipidemia, unspecified; Z13.6 Encounter for screening for cardiovascular disorders; Z79.899 Other long term (current) drug therapy
CPT/HCPCS: 36415; 80053; 80061; 82043; 82550; 82570; 82607; 83036; 83721; 84443; 85025

== ENCOUNTER 2022-03-22 16:57 | Outpatient (CLI) | payer MEDICARE, OTHER ==
--- NOTE | 2022-03-23 08:39 | Ultrasound Report ---
PROCEDURE: Carotid Doppler Complete INDICATIONS: CALCIFICATION OF RIGHT ICA TECHNIQUE: Color and pulse Doppler interrogation was performed of both carotid systems, with image documentation and velocity measurements. COMPARISON: None. FINDINGS: Right side: Brachial blood pressure: 127/70 mm Hg. Common carotid artery peak systolic velocity: 64.1 cm/sec. Internal carotid artery peak systolic velocity: 90.0 cm/sec. Internal carotid artery end diastolic velocity: 39.5 cm/sec. External carotid artery peak systolic velocity: 59.0 cm/sec. ICA/CCA peak systolic ratio: 1.4 . Sullivan scale imaging description: Mild to moderate heterogenous/calcific plaque at the right bifurcati on. A lymph node is noted at the level of the mid CCA measuring 1.4 x 0.5 cm. Percent internal carotid artery stenosis: Less than 50% . Vertebral artery: Flow direction is antegrade. Left side: Brachial blood pressure: 135/71 mm Hg. Common carotid artery peak systolic velocity: 52.3 cm/sec. Internal carotid artery peak systolic velocity: 74.4 cm/sec. Internal carotid artery end diastolic velocity: 27.8 cm/sec. External carotid artery peak systolic velocity: 57.7 cm/sec. ICA/CCA peak systolic ratio: 1.4 . Sullivan scale imaging description: Mild to moderate heterogenous plaque at the left bifurcation. Percent internal carotid artery stenosis: Less than 50% stenosis. . Vertebral artery: Flow direction is antegrade. IMPRESSION: Plaque at the bifurcations bilaterally with less than 50% stenosis by imaging/ratio criteria. The estimate of stenosis included in the report of the imaging study was calculated using the NASCET method Reviewed by: Edgar Montez on 03/23/2022 8:38 AM PDT Approved by: Edgar Montez on 03/23/2022 8:38 AM PDT Station ID: [id number]
== END 2022-03-22 16:58 | disposition home or self-care (01) ==
LOC: DI 16:57
PROVIDERS: ATTEND Internal Medicine
DX: I65.23 Occlusion and stenosis of bilateral carotid arteries (principal); Z82.49 Family history of ischemic heart disease and other diseases of the circulatory system
CPT/HCPCS: 93880

== ENCOUNTER 2023-10-02 14:44 | Outpatient (CLI) | payer MEDICARE, OTHER ==
--- NOTE | 2023-10-03 10:57 | Mammography Report ---
BILATERAL DIGITAL SCREENING MAMMOGRAM 3D/2D: 10/02/2023 CLINICAL: Routine screening. Comparison is made to exams dated: 12/21/2020 mammogram and 03/13/2016 mammogram - [facility]. Both breasts are almost entirely fatty (category a/<25% glandular tissue). There are benign calcifications in both breasts. No significant masses, calcifications, or other findings are seen in either breast. There has been no significant interval change. IMPRESSION: BENIGN There is no mammographic evidence of malignancy. A 1 year screening mammogram is recommended. Based on the Tyrer Cuzick model (a risk assessment model) the patients lifetime risk is 0.9% and her 10 year risk is 0.0%. According to the ACR, ACS, and NCCN guidelines, an annual breast MRI exam jayna g with mammogram is recommended if the patients lifetime risk is 20% or greater. This exam was interpreted at Station ID: [id number]. NOTE: For mammograms, a report in lay terms will be sent to the patient. Approximately 15% of breast malignancies will not be visualized mammographically. In the management of a palpable breast mass, a negative mammogram must not discourage biopsy of a clinically suspicious lesion. Electronically Signed By: Fabio candelario/paulina:10/03/2023 07:49:25 letter sent: No_Letter ACR BI-RADS Category 2: Benign Finding(s) 3342F PARENCHYMAL PATTERN: (F) - The breast(s) demonstrate(s) diffuse fatty replacement. BI-RADS CATEGORY: (2) - 2 Mammogram [id number] 1 year screening LATERALITY: (B)
== END 2023-10-02 14:45 | disposition home or self-care (01) ==
LOC: DI 14:44
PROVIDERS: ATTEND Internal Medicine
DX: Z12.31 Encounter for screening mammogram for malignant neoplasm of breast (principal)

== ENCOUNTER 2023-10-30 12:29 | Outpatient (CLI) | payer MEDICARE, OTHER ==
[2023-10-30 12:40] LABS: BASOPHILS # (AUTO) 0.1 10^3/uL (0.0-0.1); BASOPHILS % (AUTO) 0.8 %; EOSINOPHILS # (AUTO) 0.1 10^3/uL (0.0-0.7); EOSINOPHILS % (AUTO) 1.4 %; HCT - HEMATOCRIT 41.5 % (37.0-47.0); HGB - HEMOGLOBIN 13.5 g/dL (12.0-16.0); LYMPHOCYTES # (AUTO) 2.4 10^3/uL (1.5-3.5); LYMPHOCYTES % (AUTO) 23.4 %; MEAN CORPUSCULAR HEMOGLOBIN 28.2 pg (27.0-31.0); MEAN CORPUSCULAR HGB CONC 32.5 g/dL (32.0-36.0); MEAN CORPUSCULAR VOLUME 86.8 fL (81.0-99.0); MEAN PLATELET VOLUME 8.8 fL (7.9-10.8); MONOCYTES # (AUTO) 0.9 10^3/uL (0.0-1.0); MONOCYTES % (AUTO) 8.4 %; NEUTROPHILS # (AUTO) 6.7 10^3/uL (1.5-6.6); NEUTROPHILS % (AUTO) 65.7 %; PLT - PLATELET COUNT 323 10^3/uL (130-450); RED BLOOD COUNT 4.78 10^6/uL (4.20-5.40); RED CELL DISTRIBUTION WIDTH 13.2 % (12.0-15.0); WHITE BLOOD COUNT 10.2 x10^3/uL (4.8-10.8)
[2023-10-30 12:47] LABS: BILIRUBIN,URINE NEGATIVE (NEGATIVE); GLUCOSE, URINE (UA) NEGATIVE (NEGATIVE); KETONES,URINE (UA) NEGATIVE (NEGATIVE); LEUKOCYTE ESTERASE, URINE MODERATE (NEGATIVE); NITRITE,URINE NEGATIVE (NEGATIVE); OCCULT BLOOD,URINE NEGATIVE (NEGATIVE); PH,URINE 6.5 PH (5.0-7.5); PROTEIN,URINE NEGATIVE (NEGATIVE); UROBILINOGEN,URINE 0.2 (NORMAL) E.U./dL (NORMAL)
[2023-10-30 12:55] LABS: CREATININE 0.6 mg/dL (0.6-1.3)
[2023-10-30 13:04] LABS: CLARITY,URINE CLEAR (CLEAR); RBC,URINE None Seen /HPF (0-5); SQUAMOUS EPITHELIAL CELL,UR RARE Squamous (<= Few)
[2023-10-30 13:05] LABS: BACTERIA,URINE Few /HPF (None Seen)
[2023-10-30 20:31] LABS: ESTIMATED AVERAGE GLUCOSE 120 mg/dL (70-100); HEMOGLOBIN A1c% 5.8 % (4.27-6.07)
== END 2023-10-30 12:30 | disposition home or self-care (01) ==
LOC: LAB 12:29
PROVIDERS: ATTEND Orthopaedic Surgery
DX: Z01.818 Encounter for other preprocedural examination (principal); R73.9 Hyperglycemia, unspecified; N39.0 Urinary tract infection, site not specified
CPT/HCPCS: 36415; 80048; 81001; 83036; 85025; 87086; 93005

== ENCOUNTER 2024-03-12 10:50 | Outpatient (CLI) | payer MEDICARE, OTHER ==
[2024-03-12 11:10] LABS: BASOPHILS # (AUTO) 0.1 10^3/uL (0.0-0.1); BASOPHILS % (AUTO) 0.7 %; EOSINOPHILS # (AUTO) 0.2 10^3/uL (0.0-0.7); EOSINOPHILS % (AUTO) 2.2 %; HCT - HEMATOCRIT 39.8 % (37.0-47.0); HGB - HEMOGLOBIN 12.4 g/dL (12.0-16.0); LYMPHOCYTES # (AUTO) 2.6 10^3/uL (1.5-3.5); MEAN CORPUSCULAR HEMOGLOBIN 27.6 pg (27.0-31.0); MEAN CORPUSCULAR HGB CONC 31.2 g/dL (32.0-36.0); MEAN CORPUSCULAR VOLUME 88.6 fL (81.0-99.0); MEAN PLATELET VOLUME 9.2 fL (7.9-10.8); MONOCYTES # (AUTO) 0.8 10^3/uL (0.0-1.0); MONOCYTES % (AUTO) 8.5 %; NEUTROPHILS % (AUTO) 61.4 %; PLT - PLATELET COUNT 343 10^3/uL (130-450); RED BLOOD COUNT 4.49 10^6/uL (4.20-5.40); RED CELL DISTRIBUTION WIDTH 13.2 % (12.0-15.0); WHITE BLOOD COUNT 9.8 x10^3/uL (4.8-10.8)
[2024-03-12 11:26] LABS: CALCIUM 10.2 mg/dL (8.5-10.3); CREATININE 0.7 mg/dL (0.6-1.3); POTASSIUM 3.9 mmol/L (3.5-4.5)
== END 2024-03-12 10:51 | disposition home or self-care (01) ==
LOC: LAB 10:50
PROVIDERS: ATTEND Orthopaedic Surgery
DX: Z01.812 Encounter for preprocedural laboratory examination (principal)
CPT/HCPCS: 36415; 80048; 85025